=== PATIENT | male | born 1975 | race Caucasian/White ===

== ENCOUNTER 2016-08-30 16:42 | Emergency (ER) | payer OTHER ==
[2016-08-30 16:42] VITALS: BP 148/92
[~2016-08-30 16:42] MED LIST: PERC5TAB12 PO; naproxen OR
[2016-08-30] MEDS ORDERED: TYLE325T5 PO (16:53)
[2016-08-30] MEDS ORDERED: NAPR500T3 PO (16:53)
[2016-08-30] MEDS ORDERED: FLUORESCEIN OPHTH 1 MG STRIP As Ordered ONE (17:02)
[2016-08-30] MEDS ORDERED: ERYT5OPO OD (17:12)
[2016-08-30] MEDS ORDERED: TETRACAINE 0.5% OPHTH SOLN 4ML OU ONE (17:15)
[2016-08-30] MEDS ORDERED: ERYTHROMYCIN OPHTH OINT OD ONE (17:15)
[2016-08-30] MEDS ORDERED: FLUORESCEIN OPHTH 1 MG STRIP OU ONE (17:15)
== END 2016-08-30 17:33 | disposition home or self-care (01) ==
LOC: M ED 17:25
DX: S05.01XA Injury of conjunctiva and corneal abrasion without foreign body, right eye, initial encounter (principal); W22.8XXA Striking against or struck by other objects, initial encounter; Y92.099 Unspecified place in other non-institutional residence as the place of occurrence of the external cause; Y93.H9 Activity, other involving exterior property and land maintenance, building and construction; Y99.9 Unspecified external cause status

== ENCOUNTER → 2018-03-20 | Outpatient (REF) | payer OTHER ==
[~2018-03-20] MED LIST changes: +ERYT5OPO OD; +NAPR-885 PO; +TYLE325T5 PO
[2018-03-20 10:12] LABS: SEMEN APPEARANCE OPAQUE (OPAQUE)
[2018-03-20 10:13] LABS: SEMEN VISCOSITY LIQUID (LIQUID); SEMEN VOLUME 2.5 ml (4.0-5.0); WBC CONCENTRATION <=1 M/ml (<=1 M/ml)
== END ==
LOC: M SMT 09:39
PROVIDERS: ATTEND Nurse Practitioner Family
DX: Z30.09 Encounter for other general counseling and advice on contraception (principal)

== ENCOUNTER → 2021-08-30 | Outpatient (CLI) | payer OTHER ==
[~2021-08-30] MED LIST changes: +ERYT5OIN25 OD; -ERYT5OPO OD
== END ==
LOC: M SLEEP 19:48
PROVIDERS: ATTEND Nurse Practitioner Family
DX: R06.83 Snoring (principal)

== ENCOUNTER 2021-10-17 08:10 | Day surgery (SDC) | payer OTHER ==
[~2021-10-17] VITALS: Ht 170.2 cm; Wt 94.3 kg
[~2021-10-17 08:10] MED LIST changes: +LIDOCAINE 2% 100MG/5ML SDV (FOR ANES.) As Ordered ONE; +LOVA40TA PO; +NS 1,000 ML IV ONE; +SIMETHICONE 40MG/0.6ML DROPS 30ML As Ordered ONE; +propofoL 200 MG/20 ML VIAL As Ordered ONE
[2021-10-17 09:50] VITALS: BP 100/55
== END 2021-10-17 10:00 | disposition home or self-care (01) ==
LOC: M OPP 08:10
PROVIDERS: ATTEND Internal Medicine Gastroenterology
DX: Z12.11 Encounter for screening for malignant neoplasm of colon (principal); K64.0 First degree hemorrhoids; E78.5 Hyperlipidemia, unspecified; Z79.899 Other long term (current) drug therapy

== ENCOUNTER → 2022-02-06 | Outpatient (REF) ==
[~2022-02-06] MED LIST changes: -LIDOCAINE 2% 100MG/5ML SDV (FOR ANES.) As Ordered ONE; -NS 1,000 ML IV ONE; -SIMETHICONE 40MG/0.6ML DROPS 30ML As Ordered ONE; -propofoL 200 MG/20 ML VIAL As Ordered ONE
== END ==
LOC: M PLAIMG 12:44
PROVIDERS: ATTEND Internal Medicine
DX: M25.512 Pain in left shoulder (principal); M25.531 Pain in right wrist; M25.532 Pain in left wrist; M25.561 Pain in right knee; M25.562 Pain in left knee; M25.572 Pain in left ankle and joints of left foot

== ENCOUNTER → 2022-02-08 | Outpatient (REF) | LOC: M PLAIMG 14:24 | PROVIDERS: ATTEND Internal Medicine | DX: R06.02 Shortness of breath (principal); M25.50 Pain in unspecified joint ==

== ENCOUNTER → 2023-05-23 | Outpatient (CLI) | payer OTHER ==
[2023-05-23 20:18] LABS: HEMATOCRIT 40.1 % (42.0-52.0); HEMOGLOBIN 13.6 g/dl (13.5-17.5); MEAN CORPUSCULAR HEMOGLOBIN 29.8 pg (27.0-33.0); MEAN CORPUSCULAR HGB CONC 33.9 g/dl (32.0-36.5); MEAN CORPUSCULAR VOLUME 87.9 fl (80.0-96.0); PLATELET COUNT, AUTOMATED 234 10^3/uL (150-450); RED BLOOD COUNT 4.56 10^6/uL (4.30-6.10); WHITE BLOOD COUNT 11.3 10^3/uL (4.0-10.0)
[2023-05-23 20:43] LABS: ALBUMIN 4.1 G/DL (3.2-5.2); ALKALINE PHOSPHATASE 75 U/L (46-116); ALT/SGPT 36 U/L (7.0-40); AST/SGOT 32 U/L (<34); BILIRUBIN,TOTAL 0.5 MG/DL (0.3-1.2); BLOOD UREA NITROGEN 13 MG/DL (9-23); CALCIUM LEVEL 8.4 MG/DL (8.5-10.1); CARBON DIOXIDE LEVEL 29 MMOL/L (20-31); CHLORIDE LEVEL 105 MMOL/L (98-107); CHOLESTEROL LEVEL 173 MG/DL (<200); CHOLESTEROL RISK RATIO 4.27 (<5); GLOMERULAR FILTRATION RATE > 60.0 (>60); GLUCOSE, FASTING 88 MG/DL (60-100); HDL CHOLESTEROL 40.5 MG/DL (>40); LDL CHOLESTEROL 78.1 MG/DL (<100); NON-HDL-C 132.5 MG/DL; POTASSIUM SERUM 4.1 MMOL/L (3.5-5.1); SODIUM LEVEL 141 MMOL/L (136-145); TOTAL PROTEIN 7.2 G/DL (5.7-8.2); TRIGLYCERIDES LEVEL 272 MG/DL (<150)
[2023-05-23 20:45] LABS: THYROID STIMULATING HORMONE 1.543 uIU/ML (0.55-4.78)
== END ==
LOC: M WUC 15:18
PROVIDERS: ATTEND Physician Assistant
DX: E78.5 Hyperlipidemia, unspecified (principal)

== ENCOUNTER → 2023-05-31 | Outpatient (CLI) | payer OTHER ==
[2023-05-31 18:32] LABS: HEMATOCRIT 41.3 % (42.0-52.0); HEMOGLOBIN 14.1 g/dl (13.5-17.5); MEAN CORPUSCULAR HEMOGLOBIN 29.9 pg (27.0-33.0); MEAN CORPUSCULAR HGB CONC 34.1 g/dl (32.0-36.5); MEAN CORPUSCULAR VOLUME 87.7 fl (80.0-96.0); PLATELET COUNT, AUTOMATED 222 10^3/uL (150-450); RED BLOOD COUNT 4.71 10^6/uL (4.30-6.10); WHITE BLOOD COUNT 12.5 10^3/uL (4.0-10.0)
[2023-05-31 19:02] LABS: BLOOD UREA NITROGEN 17 MG/DL (9-23); CALCIUM LEVEL 9.5 MG/DL (8.5-10.1); CARBON DIOXIDE LEVEL 31 MMOL/L (20-31); CHLORIDE LEVEL 105 MMOL/L (98-107); CREATININE FOR GFR 1.31 MG/DL (0.70-1.30); GLOMERULAR FILTRATION RATE > 60.0 (>60); GLUCOSE, FASTING 93 MG/DL (60-100); POTASSIUM SERUM 4.4 MMOL/L (3.5-5.1); SODIUM LEVEL 140 MMOL/L (136-145)
[2023-05-31 19:03] LABS: PTH INTACT 32.2 PG/ML (18.5-88.0)
[2023-05-31 19:04] LABS: TOTAL 25(OH) VITAMIN D 29.4 NG/ML (20.0-100.0)
[2023-06-01 13:35] LABS: IRON (FE) 68 UG/DL (65-175); PERCENT SATURATION 20.9 % (19.7-50.0); TOTAL IRON BINDING CAPACITY 325 UG/DL (250-425)
[2023-06-01 13:38] LABS: FERRITIN 63.8 NG/ML (10.5-307.3); FOLATE 22.7 NG/ML (>5.4); VITAMIN B12 LEVEL 545 PG/ML (211-911)
== END ==
LOC: M WUC 15:12
PROVIDERS: ATTEND Physician Assistant
DX: Z00.00 Encounter for general adult medical examination without abnormal findings (principal); D64.9 Anemia, unspecified

== ENCOUNTER → 2024-01-10 | Outpatient (CLI) | payer OTHER ==
[2024-01-10 10:22] LABS: BASO % 0.5 % (0.0-1.0); EOS # 0.3 10^3/uL (0.0-0.5); EOS % 4.2 % (0.0-3.0); HEMATOCRIT 41.2 % (42.0-52.0); HEMOGLOBIN 13.7 g/dl (13.5-17.5); LYMPH # 1.6 10^3/uL (1.5-5.0); MEAN CORPUSCULAR HEMOGLOBIN 29.5 pg (27.0-33.0); MEAN CORPUSCULAR HGB CONC 33.3 g/dl (32.0-36.5); MEAN CORPUSCULAR VOLUME 88.6 fl (80.0-96.0); MONO # 0.8 10^3/uL (0.0-0.8); MONO % 12.3 % (2.0-8.0); NEUTROPHILS # 3.7 10^3/uL (1.5-8.5); NEUTROPHILS % 57.7 % (36.0-66.0); PLATELET COUNT, AUTOMATED 204 10^3/uL (150-450); RED BLOOD COUNT 4.65 10^6/uL (4.30-6.10); WHITE BLOOD COUNT 6.4 10^3/uL (4.0-10.0)
[2024-01-10 11:55] LABS: ALBUMIN 3.8 G/DL (3.2-5.2); ALKALINE PHOSPHATASE 70 U/L (40-129); ALT/SGPT 28 U/L (7.0-40); AST/SGOT 26 U/L (<34); BILIRUBIN,TOTAL 0.4 MG/DL (0.3-1.2); BLOOD UREA NITROGEN 14 MG/DL (9-23); CALCIUM LEVEL 9.3 MG/DL (8.5-10.1); CARBON DIOXIDE LEVEL 30 MMOL/L (20-31); CHLORIDE LEVEL 106 MMOL/L (98-107); CREATININE FOR GFR 1.13 MG/DL (0.70-1.30); GLOMERULAR FILTRATION RATE > 60.0 (>60); GLUCOSE, FASTING 97 MG/DL (60-100); SODIUM LEVEL 140 MMOL/L (136-145); TOTAL PROTEIN 7.1 G/DL (5.7-8.2)
== END ==
LOC: M WUC 08:23
PROVIDERS: ATTEND Physician Assistant
DX: E78.5 Hyperlipidemia, unspecified (principal)